=== PATIENT | male | born 2000 | race Hispanic/Latino ===

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

== ENCOUNTER 2024-07-22 17:01 | Emergency (ER) | payer SELFPAY ==
[~2024-07-22] VITALS: Ht 170.2 cm; Wt 68.0 kg
[~2024-07-22 17:01] MED LIST: DIPH14SO3 TP
[2024-07-22] MEDS ORDERED: TERB250T89 PO (17:13)
--- NOTE | 2024-07-22 17:14 | ERN ---
General Chief Complaint: Skin Rash/Abscess Stated Complaint: SKIN Time Seen by MD: 17:03 History of Present Illness Initial Comments 24-year-old male who presents for ringworm all over his chest and legs Allergies: Coded Allergies: No Known Drug Allergies (Unverified Allergy, Unknown, 03/15/19) Home Meds Active Scripts Diphenhydramine HCl/Zinc Acet (Benadryl Itch Relief Stick) 14 Ml Solution, 14 ML TP TIDP PRN for ITCHING for 30 Days, #15 ML Prov:GER GARCÍA DO 04/21/21 Past Medical History Past Medical History: No Pertinent History Past Surgical History: None Social History Social History: Negative ROS Dictation CONSTITUTIONAL: No chills, no fever, no weakness, no diaphoresis, no malaise. HEAD/FACE: No signs of trauma. EENT: No eye pain, no blurred vision, no tearing, no double vision, no ear pain, no ear discharge, no nose pain, no nasal congestion, no throat pain, no throat swelling, no mouth pain. RESPIRATORY: No cough, no orthopnea, no SOB, no stridor, no wheezing. CARDIOVASCULAR: No chest pain, no edema, no palpitations, no syncope. GASTROINTESTINAL/ABDOMINAL: No abdominal pain, no constipation, no diarrhea, no nausea, no vomiting. GENITOURINARY: No abnormal discharge, no dysuria, no frequent urination, no hematuria. No complaints of pain in the genitals. MUSCULOSKELETAL: No back pain, no gout, no joint pain, no joint swelling, no muscle pain, no muscle stiffness, no neck pain. INTEGUMENTARY: No change in color, no change in hair/nails, no dryness, no lesion, no lumps, no rash. NEUROLOGICAL/PSYCH: No anxiety, not depressed, no emotional problem, no headache, no numbness, no pre-existing deficit, no history of seizures, no tremors, no weakness. HEMATOLOGIC/LYMPHATIC: Not anemic, no history of blood clots, no apparent bleeding, no bruising, glands not swollen. All Systems Negative, Except as Noted. Physical Exam Physical Exam Dictation VITAL SIGNS: Reviewed. GENERAL APPEARANCE: Alert, oriented x3, no acute distress HEAD AND FACE: Non-traumatic. EYES: PERRL, pink conjunctivas, eyelid no trauma, anterior chamber clear. EARS: Pinnas intact and no signs of trauma or erythema. Ear canals clear and no discharge. TMs no erythema. NOSE: No discharge, no bleeding. OROPHARYNX: Mouth normal, teeth no caries, tongue pink. Pharynx clear, no erythema. Tonsils no exudates, no abscesses noted. Mucous membrane moist. NECK: Supple, non-tender, no thyromegaly, no masses, no JVD, no bruits. BREAST: Deferred. CHEST: No tenderness, no crepitus, no paradoxical movement, no retractions. LUNGS: Clear, well-ventilated, symmetric, no rales, no wheezing, no rhonchi, no stridor, good breath sounds bilaterally. HEART: Regular rate, regular rhythm, no murmur, no gallops. VASCULAR: No peripheral edema. ABDOMEN: Soft, positive bowel sounds, nondistended, no guarding, nontender, no rebound, no masses no hepatomegaly, no splenomegaly, no Aguilar's sign, no hernias. RECTAL: Deferred. GENITAL: Deferred. NEUROLOGICAL: Normal speech, gross motor function intact, gross sensory function intact. MUSCULOSKELETAL: Neck nontender, full range of motion, back nontender, full range of motion. EXTREMITIES: Nontender, full range of motion. SKIN: Color pink, dry, no turgor, no rash, no lacerations, no abrasions, no contusions. LYMPHATICS: Deferred. RENNY CC: Ringworm Historian: Patient Comorbidities: None Limitations by social determinants of health: None Differential diagnosis: Ringworm Clinical exam: Rate warm all over his chest. No systemic symptoms. We will treat with terbinafine and recommend PCP follow up. DX & DISP Disposition: Discharge Departure Impression: Primary Impression: Ringworm of body Condition: Stable Scripts Terbinafine HCl (Terbinafine HCl) 250 Mg Tablet 1 TAB PO DAILY for 30 Days, #30 TAB 0 Refills Prov: MABEL GOMEZ DO 07/22/24 Additional Instructions: You have ringworm. I have prescribed terbinafine which is an antifungal medication. Take this once per day for the next four weeks. You can continue using the [id number] creams as needed. Daily for keep the affected areas clean and dry. Avoid sharing towels or clothing. Avoid steroid creams. Please go to a primary doctor for further evaluation. Referrals: SOCORRO CHAPARRO (PCP) MABEL GOMEZ DO Jul 22, 2024 17:14
[2024-07-22 17:17] VITALS: BP 125/62; PULSE 71; RESP 18; TEMP 98.5; O2SAT 98
== END 2024-07-22 17:20 | disposition home or self-care (01) ==
LOC: EDH 17:01
DX: B35.4 Tinea corporis (principal)
CPT/HCPCS: 99282